=== PATIENT | female | born 1975 | race Two or more races ===

== ENCOUNTER 2024-11-01 13:17 | Inpatient (IN) | payer OTHER ==
[~2024-11-01] VITALS: Ht 170.2 cm; Wt 77.1 kg
[2024-11-01] MEDS ORDERED: SYNTHROID100 MCG PO (13:51)
[2024-11-01] MEDS ORDERED: 0.9 % SODIUM CHLORIDE 500 ML IV SCH (14:45)
[2024-11-01 16:38] LABS: INR 1.05
[2024-11-01 16:39] LABS: BASO % 0.7 % (0.1-1.2); EOS # 0.11 (0.04-0.54); EOS % 1.9 % (0.7-7.0); LYMPH # 1.92 (1.18-3.74); LYMPH % 32.5 % (19.3-53.1); MEAN PLATELET VOLUME 11.90 fl (9.4-12.4); MONO # 0.74 (0.24-0.82); NEUT # 3.08 (1.56-6.13); NEUT % 52.2 % (34.0-71.1); RED CELL DISTRIBUTION WIDTH 17.7 % (11.6-14.4)
[2024-11-01 16:42] LABS: MONO % 12.5 % (4.7-12.5)
[2024-11-01 16:45] LABS: ALT/SGPT 21.0 U/L (12-78); AST/SGOT 20.0 U/L (15-37); BILIRUBIN TOTAL 0.42 mg/dL (0.3-1.2); BUN CREA RATIO 15.0 (7.0-25.0); CREATININE SERUM 0.91 mg/dL (0.55-1.02); GFR 65.7; GLOBULINA 3.0 G/DL (2.4-3.5); GLUCOSE FASTING 95.0 mg/dL (65-100); OSMOLALITY SERUM 293.0 MOSM/KG (275-295)
[2024-11-01 17:13] LABS: URINE BILIRRUBIN NEGATIVE (NEGATIVE); URINE BLOOD SMALL; URINE GLUCOSE NEGATIVE (NEGATIVE); URINE KETONE NEGATIVE (NEGATIVE); URINE LEUKOCYTE NEGATIVE; URINE NITRATE NEGATIVE; URINE PROTEIN NEGATIVE (NEGATIVE); URINE UROBILINOGEN 0.2 E.U./dl
[2024-11-01 17:35] LABS: URINE APPEARANCE CLEAR; URINE COLOR YELLOW
[2024-11-01 17:36] LABS: URINE BACTERIA FEW; URINE CRYSTALS MODERATE /HPF; URINE MUCUS NEGATIVE; URINE WBC 0-2 /hpf
[2024-11-01] MEDS ORDERED: SOD FERRIC GLUC COMPLX/SUCROSE 62.5 MG in 0.9 % SODIUM CHLORIDE 50 ML IV SCH (17:55)
[2024-11-01] MEDS ORDERED: RINGERS SOLUTION,LACTATED 1,000 ML IV SCH (18:00)
[2024-11-01] MEDS ORDERED: ACETAMINOPHEN 500 MG GEL..CAP PO PRN (18:00)
[2024-11-01] MEDS ORDERED: ONDANSETRON HCL 4 MG in 0.9 % SODIUM CHLORIDE 50 ML IV PRN (18:00)
[2024-11-01 20:32] VITALS: BP 116/72; O2SAT 97
[2024-11-02 00:29] VITALS: BP 113/76
[2024-11-02] MEDS ORDERED: LEVOTHYROXINE SODIUM 100 MCG TABLET PO SCH (06:00)
[2024-11-02 08:37] VITALS: BP 121/68
[2024-11-02] MEDS ORDERED: FAMOTIDINE/PF 20 MG in 0.9 % SODIUM CHLORIDE 8 ML IV PUSH SCH (09:00)
[2024-11-02 11:04] LABS: BASO % 0.8 % (0.1-1.2); EOS # 0.10 (0.04-0.54); EOS % 1.9 % (0.7-7.0); LYMPH # 1.90 (1.18-3.74); LYMPH % 36.6 % (19.3-53.1); MEAN PLATELET VOLUME 11.30 fl (9.4-12.4); MONO # 0.53 (0.24-0.82); MONO % 10.2 % (4.7-12.5); NEUT # 2.61 (1.56-6.13); NEUT % 50.3 % (34.0-71.1); RED CELL DISTRIBUTION WIDTH 16.6 % (11.6-14.4)
[2024-11-02] MEDS ORDERED: MORPHINE SULFATE 4 MG/ML CARTRIDGE IV PRN (14:00)
[2024-11-02] MEDS ORDERED: RINGERS SOLUTION,LACTATED 1,000 ML IV SCH (14:00)
[2024-11-02] MEDS ORDERED: POVIDONE-IODINE 118 ML BOTT TOP ONE (14:15)
[2024-11-02 16:30] VITALS: BP 108/67; O2SAT 100
[2024-11-02 18:12] VITALS: BP 107/71; O2SAT 100
== END 2024-11-02 19:25 | disposition home or self-care (01) | DRG 745 ==
LOC: ER 13:17 → OB/GYN 18:27
PROVIDERS: Emergency Medicine; ADMIT General Practice; ATTEND General Practice
PROC: 0UDB8ZZ Extraction of Endometrium, Via Natural or Artificial Opening Endoscopic (ICD-10-PCS; principal; 2024-11-01)
PROC: 30233N1 Transfusion of Nonautologous Red Blood Cells into Peripheral Vein, Percutaneous Approach (ICD-10-PCS; 2024-11-01)
PROC: BU4CZZZ Ultrasonography of Uterus and Ovaries (ICD-10-PCS; 2024-11-01)
DX: N84.0 Polyp of corpus uteri (principal); N93.9 Abnormal uterine and vaginal bleeding, unspecified; D64.0 Hereditary sideroblastic anemia

== ENCOUNTER 2025-01-07 09:06 | Inpatient (IN) | payer OTHER ==
[~2025-01-07] VITALS: Ht 170.2 cm; Wt 77.1 kg
[~2025-01-07 09:06] MED LIST: SYNTHROID100 MCG PO
[2025-01-07 09:11] VITALS: BP 100/61; BP 112/73
[2025-01-15] MEDS ORDERED: BUPIVACAINE HCL/Mpf 0.5% 10ML VIAL ONE (15:55)
[2025-01-15] MEDS ORDERED: CEFAZOLIN SODIUM 1,000 MG VIAL ONE (15:56)
[2025-01-15] MEDS ORDERED: LIDOCAINE HCL 1%/EPINEPHRINE 20ML VIAL IJ ONE (15:56)
[2025-01-15] MEDS ORDERED: SUGAMMADEX SODIUM 200 MG/2 ML VIAL IV ONE (17:10)
[2025-01-15] MEDS ORDERED: METRONIDAZOLE/SODIUM CHLORIDE 500 MG/100 ML PIGGYBACK IV ONE (17:10)
[2025-01-15] MEDS ORDERED: RINGERS SOLUTION,LACTATED 1,000 ML IV SCH (19:00)
[2025-01-15] MEDS ORDERED: MORPHINE SULFATE 4 MG/ML CARTRIDGE IV PRN (19:00)
[2025-01-15] MEDS ORDERED: ONDANSETRON HCL 2 MG/ML VIAL IV PRN (19:00)
[2025-01-15] MEDS ORDERED: ONDANSETRON HCL 2 MG/ML VIAL ONE (20:12)
[2025-01-15] MEDS ORDERED: FAMOTIDINE/PF 20 MG/2 ML VIAL IV SCH (21:00)
[2025-01-16] MEDS ORDERED: ACETAMINOPHEN 500 MG GEL..CAP PO PRN (01:00)
[2025-01-16 02:52] VITALS: BP 100/61
[2025-01-16] MEDS ORDERED: LEVOTHYROXINE SODIUM 100 MCG TABLET PO SCH (06:00)
[2025-01-16] MEDS ORDERED: OxyCODONE HCL 5 MG TABLET (ROXICODONE) PO PRN (08:30)
[2025-01-16 08:46] VITALS: BP 107/69
[2025-01-16] MEDS ORDERED: DOCUSATE SODIUM 100MG CAP PO SCH (09:00)
[2025-01-16] MEDS ORDERED: SIMETHICONE 125 MG CAPSULE PO SCH (09:00)
[2025-01-16] MEDS ORDERED: GABAPENTIN 100 MG CAPSULE PO PRN (09:00)
[2025-01-16 14:21] LABS: BASO % 0.3 % (0.1-1.2); EOS # 0.03 (0.04-0.54); EOS % 0.3 % (0.7-7.0); LYMPH # 1.94 (1.18-3.74); LYMPH % 18.2 % (19.3-53.1); MEAN PLATELET VOLUME 11.40 fl (9.4-12.4); MONO # 0.66 (0.24-0.82); MONO % 6.2 % (4.7-12.5); NEUT # 7.99 (1.56-6.13); NEUT % 74.8 % (34.0-71.1); RED CELL DISTRIBUTION WIDTH 16.2 % (11.6-14.4)
== END 2025-01-16 14:49 | disposition home or self-care (01) | DRG 743 ==
LOC: OB/GYN 01-15 10:45 → O/R 01-15 14:00 → OB/GYN 01-15 14:00
PROVIDERS: ADMIT General Practice; ATTEND General Practice
PROC: 0UT74ZZ Resection of Bilateral Fallopian Tubes, Percutaneous Endoscopic Approach (ICD-10-PCS; 2025-01-15)
PROC: 0UT94ZZ Resection of Uterus, Percutaneous Endoscopic Approach (ICD-10-PCS; principal; 2025-01-15 15:30)
DX: D25.0 Submucous leiomyoma of uterus (principal); D50.0 Iron deficiency anemia secondary to blood loss (chronic); E03.9 Hypothyroidism, unspecified